=== PATIENT | female | born 1955 | race African-American/Black ===

== ENCOUNTER 2021-10-18 12:57 | Inpatient (IN) | payer MEDICARE, MEDICAID ==
[~2021-10-18] VITALS: Ht 167.6 cm; Wt 97.5 kg
[~2021-10-18 12:57] MED LIST: ALBU6.7H9 INH; BUPR-46 MT; CHOL400D7 PO; COR3 PO; EPOE40009 IJ; GABA-529 PO; HEPA100D37 SQ; INSU100C6 SQ; LEVO200T8 MT; LOSA25TA3 PO; MELA3TAB40 PO; NEPVIT PO; POLY119P2 MT; PROT40 MT; REV20 PO; RISP2TAB85 PO; SENN-257 PO; SEVE800T8 MT; SIME80TA15 PO; THIA50TA12 MT
[2021-10-18] MEDS ORDERED: LORAZEPAM 2MG/ML CPJ IM ONE (14:30)
[2021-10-18 15:30] LABS: BASOPHILS % 0.3 % (0.0-2.0); EOSINOPHILS % 8.3 % (0.0-5.0); HEMATOCRIT. 37.5 % (36.0-48.0); HEMOGLOBIN. 12.3 g/dL (12.0-16.0); LYMPHOCYTES % 15.9 % (20.0-50.0); MEAN CORPUSCULAR HEMOGLOBIN 28.8 pg (28.0-32.0); MEAN CORPUSCULAR VOLUME 87.9 fL (81.0-99.0); MEAN PLATELET VOLUME 9.3 fl (7.4-10.4); MONOCYTES % 11.5 % (2.0-8.0); PLATELET 141 x1000/uL (130-400); RED BLOOD CELL COUNT 4.27 mill/uL (4.2-5.4); RED CELL DISTRIBUTION WIDTH 21.8 % (11.6-14.6)
[2021-10-18 15:33] LABS: CHLORIDE 93 mEq/L (98-107)
[2021-10-18] MEDS ORDERED: SODIUM CHLORIDE 0.9% 1000ML BAG (SEPSIS BOLUS) IV ONE (15:45)
[2021-10-18] MEDS ORDERED: PIPERACILLIN/TAZ 3.375G PREMIX 50 ML IV ONE (15:45)
[2021-10-18] MEDS ORDERED: VANCOMYCIN 1G PREMIX 200 ML IV ONE (15:45)
[2021-10-18] MEDS ORDERED: SODIUM BICARBONATE 8.4% 1 MEQ/ML 50ML SYR IV ONE (16:15)
[2021-10-18 20:43] LABS: CLARITY URINE TURBID (CLEAR); COLOR URINE YELLOW (YELLOW); KETONES URINE NEGATIVE (NEGATIVE); LEUKOCYTE ESTERASE URINE 3+ (NEGATIVE); NITRITE URINE NEGATIVE (NEGATIVE); OCCULT BLOOD URINE 2+ (NEGATIVE); PH URINE >=9.0 (4.5-8.0); PROTEIN URINE 2+ (NEGATIVE); SPECIFIC GRAVITY URINE 1.008 (1.005-1.030); UROBILINOGEN URINE 0.2 E.U./dL (0.2-1.0)
[2021-10-18] MEDS ORDERED: ACETAMINOPHEN 325MG TABLET PO PRN (21:00)
[2021-10-18] MEDS ORDERED: CEFTRIAXONE 1 G PREMIX 50 ML IV SCH (21:00)
[2021-10-18] MEDS ORDERED: ONDANSETRON HCL 4MG/2ML INJ IV PRN (21:00)
[2021-10-18] MEDS ORDERED: DOCUSATE SODIUM 100MG CAPSULE PO PRN (21:00)
[2021-10-18] MEDS ORDERED: HYDROCODONE/ACETAMINOPHEN 5/325MG TABLET PO PRN (21:00)
[2021-10-18] MEDS ORDERED: MAGNESIUM/ALUMINUM HYDROXIDE/SIMETHICONE 30ML UDC PO PRN (21:00)
[2021-10-18] MEDS ORDERED: LORAZEPAM 2MG/ML CPJ IV PRN (21:00)
[2021-10-18] MEDS ORDERED: CLONIDINE 0.1MG TABLET PO PRN (21:00)
[2021-10-18] MEDS ORDERED: NALOXONE HCL 0.4MG/ML VIAL IV PRN (21:45)
[2021-10-18] MEDS: ENOXAPARIN 40MG/0.4ML SYR SUBCUT SCH (21:50)
[2021-10-19 08:06] LABS: HEMATOCRIT. 37.2 % (36.0-48.0); MEAN CORPUSCULAR HEMOGLOBIN 28.6 pg (28.0-32.0); MEAN CORPUSCULAR VOLUME 88.9 fL (81.0-99.0); MEAN PLATELET VOLUME 9.3 fl (7.4-10.4); PLATELET 119 x1000/uL (130-400); RED BLOOD CELL COUNT 4.19 mill/uL (4.2-5.4); RED CELL DISTRIBUTION WIDTH 21.9 % (11.6-14.6)
[2021-10-19 08:28] LABS: CHLORIDE 96 mEq/L (98-107)
[2021-10-19 08:45] VITALS: BP 158/83
[2021-10-19 08:52] LABS: HDL CHOLESTEROL 40 mg/dL (40-59)
[2021-10-19 08:55] LABS: LDL CHOLESTEROL 25 mg/dL (5-100); PHOSPHORUS 4.1 mg/dL (2.5-4.9)
[2021-10-19 10:00] VITALS: BP 158/83
[2021-10-19 12:00] VITALS: BP 149/73
[2021-10-19 13:11] LABS: BG BASE EXCESS 8.2 mmol/L (-2.0-2.0); BG CARBOXYHEMOGLOBIN 1.2 % (0.5-1.5); BG DEOXYHEMOGLOBIN 1.6 % (0.0-5.0); BG FRACTION INSPIRED OXYGEN 28; BG HCO3 ACT 34.1 mmol/L (22.0-26.0); BG METHEMOGLOBIN 0.3 % (0.0-1.5); BG OXYGEN SATURATION 98.4 % (92.0-98.5); BG OXYHEMOGLOBIN 96.9 % (94.0-97.0); BG PH 7.426 (7.350-7.450); BG PO2 115.5 mmHg (75.0-100.0); BG SAMPLE SITE RIGHT RADIAL; BG TOTAL HEMOGLOBIN 12.5 g/dL (12.0-18.0); BG VENT MODE NASAL CANNULA
[2021-10-19 14:05] LABS: PLATELET ESTIMATE DECREASED
[2021-10-19 16:00] VITALS: BP 152/78
[2021-10-19 17:11] LABS: HEPATITIS B SURFACE ANTIGEN NEGATIVE
[2021-10-19] MEDS: DIVALPROEX SODIUM 250MG DR TABLET PO SCH ×2 (17:46→21:18)
[2021-10-19 20:00] VITALS: BP 155/83
[2021-10-19] MEDS ORDERED: ALBUTEROL (0.083%) 2.5MG/3ML NEB HHN SCH (21:00)
[2021-10-19] MEDS ORDERED: ALBUTEROL 6.7GM HFA INHALER INH SCH (21:00)
[2021-10-19] MEDS: SIMETHICONE 80MG TABLET CHEW PO SCH (21:18)
[2021-10-19] MEDS: ENOXAPARIN 40MG/0.4ML SYR SUBCUT SCH (21:19)
[2021-10-19] MEDS: SILDENAFIL CITRATE 20MG TABLET PO SCH (21:19)
[2021-10-19] MEDS: QUETIAPINE FUMARATE 50MG TABLET PO SCH (21:19)
[2021-10-19] MEDS: CEFTRIAXONE 1,000 MG in DEXTROSE 5% WATER 50 ML IV SCH (21:20)
[2021-10-19] MEDS: CARVEDILOL 3.125 MG TABLET PO SCH (21:20)
[2021-10-20] VITALS: BP 115/50
[2021-10-20 04:00] VITALS: BP 106/67
[2021-10-20] MEDS: SILDENAFIL CITRATE 20MG TABLET PO SCH ×3 (06:06→20:35)
[2021-10-20 06:53] LABS: BASOPHILS % 0.8 % (0.0-2.0); LYMPHOCYTES % 17.8 % (20.0-50.0); MEAN CORPUSCULAR HEMOGLOBIN 28.4 pg (28.0-32.0); MEAN CORPUSCULAR VOLUME 87.7 fL (81.0-99.0); MEAN PLATELET VOLUME 9.8 fl (7.4-10.4); MONOCYTES % 12.4 % (2.0-8.0); PLATELET 108 x1000/uL (130-400); RED BLOOD CELL COUNT 4.56 mill/uL (4.2-5.4); RED CELL DISTRIBUTION WIDTH 21.9 % (11.6-14.6)
[2021-10-20 08:00] VITALS: BP 113/86
[2021-10-20] MEDS: GABAPENTIN 100MG CAPSULE PO SCH ×2 (09:00→17:42)
[2021-10-20] MEDS: SEVELAMER CARBONATE 800 MG TABLET PO SCH ×3 (09:00→17:38)
[2021-10-20] MEDS: DIVALPROEX SODIUM 250MG DR TABLET PO SCH ×2 (09:00→20:34)
[2021-10-20] MEDS: PANTOPRAZOLE 40MG DR TABLET PO SCH (09:00)
[2021-10-20] MEDS: CARVEDILOL 3.125 MG TABLET PO SCH ×2 (09:00→21:00)
[2021-10-20] MEDS: LOSARTAN POTASSIUM 25 MG TABLET PO SCH (09:00)
[2021-10-20] MEDS: SIMETHICONE 80MG TABLET CHEW PO SCH ×4 (09:00→20:34)
[2021-10-20] MEDS: FOLIC ACID/VITAMIN B COMP W-C TABLET PO SCH (09:00)
[2021-10-20 12:00] VITALS: BP 103/51
[2021-10-20] MEDS ORDERED: DIVA250T4 PO (13:37)
[2021-10-20] MEDS ORDERED: QUET50TA PO (13:37)
[2021-10-20 16:00] VITALS: BP 123/56
[2021-10-20] MEDS: BUPROPION HCL 150MG TABLET XL 24HR PO SCH (17:37)
[2021-10-20] MEDS: CEFTRIAXONE 1,000 MG in DEXTROSE 5% WATER 50 ML IV SCH (17:37)
[2021-10-20] MEDS: SENNOSIDES 8.6MG TABLET PO SCH (17:37)
[2021-10-20] MEDS: DIPHENHYDRAMINE 50MG/ML VIAL IV PRN (17:49)
[2021-10-20 20:00] VITALS: BP 109/59
[2021-10-20] MEDS: QUETIAPINE FUMARATE 50MG TABLET PO SCH (20:34)
[2021-10-20] MEDS: ENOXAPARIN 40MG/0.4ML SYR SUBCUT SCH (20:35)
[2021-10-21] VITALS: BP 132/71
[2021-10-21 04:00] VITALS: BP 116/59
[2021-10-21] MEDS: SILDENAFIL CITRATE 20MG TABLET PO SCH ×3 (05:42→21:36)
[2021-10-21 08:00] VITALS: BP 119/56
[2021-10-21] MEDS: CARVEDILOL 3.125 MG TABLET PO SCH ×2 (09:29→21:00)
[2021-10-21] MEDS: LOSARTAN POTASSIUM 25 MG TABLET PO SCH (09:29)
[2021-10-21] MEDS: BUPROPION HCL 150MG TABLET XL 24HR PO SCH (09:29)
[2021-10-21] MEDS: SIMETHICONE 80MG TABLET CHEW PO SCH ×4 (09:29→21:33)
[2021-10-21] MEDS: SENNOSIDES 8.6MG TABLET PO SCH (09:29)
[2021-10-21] MEDS: PANTOPRAZOLE 40MG DR TABLET PO SCH (09:29)
[2021-10-21] MEDS: SEVELAMER CARBONATE 800 MG TABLET PO SCH ×3 (09:29→17:53)
[2021-10-21] MEDS: GABAPENTIN 100MG CAPSULE PO SCH (09:29)
[2021-10-21] MEDS: FOLIC ACID/VITAMIN B COMP W-C TABLET PO SCH (09:30)
[2021-10-21] MEDS: DIVALPROEX SODIUM 250MG DR TABLET PO SCH ×2 (09:30→21:33)
[2021-10-21 09:56] LABS: MEAN CORPUSCULAR HEMOGLOBIN 28.6 pg (28.0-32.0); MEAN CORPUSCULAR VOLUME 90.1 fL (81.0-99.0); MEAN PLATELET VOLUME 9.7 fl (7.4-10.4); PLATELET 111 x1000/uL (130-400); RED BLOOD CELL COUNT 3.81 mill/uL (4.2-5.4); RED CELL DISTRIBUTION WIDTH 21.9 % (11.6-14.6)
[2021-10-21 10:06] LABS: HEMATOCRIT. 34.4 % (36.0-48.0); HEMOGLOBIN. 10.9 g/dL (12.0-16.0)
[2021-10-21 11:28] LABS: PLATELET ESTIMATE DECREASED
[2021-10-21 12:00] VITALS: BP 122/61
[2021-10-21] MEDS: CEFTRIAXONE 1,000 MG in DEXTROSE 5% WATER 50 ML IV SCH (13:27)
[2021-10-21 16:00] VITALS: BP 113/49
[2021-10-21] MEDS: DIPHENHYDRAMINE 50MG/ML VIAL IV PRN (18:18)
[2021-10-21 20:00] VITALS: BP 103/52
[2021-10-21] MEDS: QUETIAPINE FUMARATE 50MG TABLET PO SCH (21:33)
[2021-10-21] MEDS: ENOXAPARIN 40MG/0.4ML SYR SUBCUT SCH (21:36)
[2021-10-22] VITALS (7 sets, daily range): BP systolic 107–153; BP diastolic 55–68
[2021-10-22] MEDS: SILDENAFIL CITRATE 20MG TABLET PO SCH ×3 (05:18→20:45)
[2021-10-22] MEDS: SEVELAMER CARBONATE 800 MG TABLET PO SCH ×3 (09:31→18:14)
[2021-10-22] MEDS: LOSARTAN POTASSIUM 25 MG TABLET PO SCH (09:32)
[2021-10-22] MEDS: SIMETHICONE 80MG TABLET CHEW PO SCH ×4 (09:32→20:44)
[2021-10-22] MEDS: GABAPENTIN 100MG CAPSULE PO SCH (09:33)
[2021-10-22] MEDS: BUPROPION HCL 150MG TABLET XL 24HR PO SCH (09:33)
[2021-10-22] MEDS: FOLIC ACID/VITAMIN B COMP W-C TABLET PO SCH (09:33)
[2021-10-22] MEDS: SENNOSIDES 8.6MG TABLET PO SCH (09:34)
[2021-10-22] MEDS: DIVALPROEX SODIUM 250MG DR TABLET PO SCH ×2 (09:35→20:44)
[2021-10-22] MEDS: PANTOPRAZOLE 40MG DR TABLET PO SCH (09:37)
[2021-10-22] MEDS: CARVEDILOL 3.125 MG TABLET PO SCH ×2 (09:37→20:45)
[2021-10-22] MEDS: CEFTRIAXONE 1,000 MG in DEXTROSE 5% WATER 50 ML IV SCH (14:33)
[2021-10-22] MEDS: ENOXAPARIN 40MG/0.4ML SYR SUBCUT SCH (20:44)
[2021-10-22] MEDS: QUETIAPINE FUMARATE 50MG TABLET PO SCH (20:44)
[2021-10-23] VITALS: BP 129/66
[2021-10-23 04:00] VITALS: BP 134/53
[2021-10-23] MEDS: SILDENAFIL CITRATE 20MG TABLET PO SCH ×3 (05:37→20:52)
[2021-10-23 08:00] VITALS: BP 118/55
[2021-10-23] MEDS: CARVEDILOL 3.125 MG TABLET PO SCH ×2 (09:00→20:53)
[2021-10-23] MEDS: LOSARTAN POTASSIUM 25 MG TABLET PO SCH (09:00)
[2021-10-23] MEDS: PANTOPRAZOLE 40MG DR TABLET PO SCH (11:51)
[2021-10-23] MEDS: SEVELAMER CARBONATE 800 MG TABLET PO SCH ×3 (11:51→18:29)
[2021-10-23] MEDS: SENNOSIDES 8.6MG TABLET PO SCH (11:51)
[2021-10-23] MEDS: BUPROPION HCL 150MG TABLET XL 24HR PO SCH (11:52)
[2021-10-23] MEDS: SIMETHICONE 80MG TABLET CHEW PO SCH ×4 (11:52→20:53)
[2021-10-23] MEDS: GABAPENTIN 100MG CAPSULE PO SCH (11:52)
[2021-10-23] MEDS: DIVALPROEX SODIUM 250MG DR TABLET PO SCH ×2 (11:52→20:55)
[2021-10-23] MEDS: FOLIC ACID/VITAMIN B COMP W-C TABLET PO SCH (11:52)
[2021-10-23 12:00] VITALS: BP 120/58
[2021-10-23] MEDS: DIPHENHYDRAMINE 50MG/ML VIAL IV PRN (12:04)
[2021-10-23] MEDS: CEFTRIAXONE 1,000 MG in DEXTROSE 5% WATER 50 ML IV SCH (13:54)
[2021-10-23 16:00] VITALS: BP 125/60
[2021-10-23 20:00] VITALS: BP 141/61
[2021-10-23] MEDS: QUETIAPINE FUMARATE 50MG TABLET PO SCH (20:53)
[2021-10-23] MEDS: ENOXAPARIN 40MG/0.4ML SYR SUBCUT SCH (21:00)
[2021-10-23] MEDS ORDERED: DEXTROSE 50% WATER 50ML SYRINGE IV PRN (23:00)
[2021-10-24] VITALS: BP 107/51
[2021-10-24] MEDS: DIPHENHYDRAMINE 50MG/ML VIAL IV PRN (00:10)
[2021-10-24 06:00] VITALS: BP 124/59
[2021-10-24] MEDS: SILDENAFIL CITRATE 20MG TABLET PO SCH ×2 (06:10→14:14)
[2021-10-24 08:00] VITALS: BP 118/57
[2021-10-24 08:19] LABS: BASOPHILS % 0.6 % (0.0-2.0); EOSINOPHILS % 11.6 % (0.0-5.0); LYMPHOCYTES % 23.9 % (20.0-50.0); MEAN CORPUSCULAR HEMOGLOBIN 28.7 pg (28.0-32.0); MEAN CORPUSCULAR VOLUME 90.4 fL (81.0-99.0); MEAN PLATELET VOLUME 9.8 fl (7.4-10.4); MONOCYTES % 12.9 % (2.0-8.0); PLATELET 119 x1000/uL (130-400); RED BLOOD CELL COUNT 4.41 mill/uL (4.2-5.4); RED CELL DISTRIBUTION WIDTH 22.4 % (11.6-14.6)
[2021-10-24 08:37] LABS: HEMATOCRIT. 39.9 % (36.0-48.0); HEMOGLOBIN. 12.7 g/dL (12.0-16.0)
[2021-10-24] MEDS: SIMETHICONE 80MG TABLET CHEW PO SCH ×2 (09:10→14:14)
[2021-10-24] MEDS: DIVALPROEX SODIUM 250MG DR TABLET PO SCH (09:10)
[2021-10-24] MEDS: SENNOSIDES 8.6MG TABLET PO SCH (09:11)
[2021-10-24] MEDS: CARVEDILOL 3.125 MG TABLET PO SCH (09:11)
[2021-10-24] MEDS: BUPROPION HCL 150MG TABLET XL 24HR PO SCH (09:11)
[2021-10-24] MEDS: LOSARTAN POTASSIUM 25 MG TABLET PO SCH (09:11)
[2021-10-24] MEDS: PANTOPRAZOLE 40MG DR TABLET PO SCH (09:11)
[2021-10-24] MEDS: SEVELAMER CARBONATE 800 MG TABLET PO SCH ×2 (09:11→14:15)
[2021-10-24] MEDS: GABAPENTIN 100MG CAPSULE PO SCH (09:11)
[2021-10-24] MEDS: FOLIC ACID/VITAMIN B COMP W-C TABLET PO SCH (09:11)
[2021-10-24 12:00] VITALS: BP 132/73
[2021-10-24 15:39] VITALS: BP 132/73
== END 2021-10-24 16:00 | disposition home or self-care (01) | DRG 189 ==
LOC: ER 13:04 → MICUSO 16:11 → 8WST 10-19 09:03
PROVIDERS: ADMIT Internal Medicine; ATTEND Internal Medicine
PROC: 5A1D70Z Performance of Urinary Filtration, Intermittent, Less than 6 Hours Per Day (ICD-10-PCS; 2021-10-19)
PROC: 5A1D70Z Performance of Urinary Filtration, Intermittent, Less than 6 Hours Per Day (ICD-10-PCS; 2021-10-22)
PROC: 5A1D70Z Performance of Urinary Filtration, Intermittent, Less than 6 Hours Per Day (ICD-10-PCS; principal; 2021-10-24)
DX: J96.01 Acute respiratory failure with hypoxia (principal); N18.6 End stage renal disease; I12.0 Hypertensive chronic kidney disease with stage 5 chronic kidney disease or end stage renal disease; E44.0 Moderate protein-calorie malnutrition; G93.40 Encephalopathy, unspecified; J81.1 Chronic pulmonary edema; N39.0 Urinary tract infection, site not specified; F31.9 Bipolar disorder, unspecified; F20.9 Schizophrenia, unspecified; D64.9 Anemia, unspecified; E03.9 Hypothyroidism, unspecified; Z20.822 Contact with and (suspected) exposure to COVID-19; E11.22 Type 2 diabetes mellitus with diabetic chronic kidney disease; E66.9 Obesity, unspecified; E87.5 Hyperkalemia; R62.7 Adult failure to thrive; Z85.118 Personal history of other malignant neoplasm of bronchus and lung; Z86.73 Personal history of transient ischemic attack (TIA), and cerebral infarction without residual deficits; Z91.14 Patient's other noncompliance with medication regimen; Z99.2 Dependence on renal dialysis; Z68.34 Body mass index [BMI] 34.0-34.9, adult; Z82.49 Family history of ischemic heart disease and other diseases of the circulatory system; Z85.3 Personal history of malignant neoplasm of breast; Z83.3 Family history of diabetes mellitus
CPT/HCPCS: 36415; 36600; 71045; 76770; 80048; 80053; 80061; 80076; 81003; 82140; 82375; 82805; 82962; 83605; 83735; 83880; 84100; 84145; 84484; 85025; 86705; 86709; 86803; 87340; 87426; 93005; 93970; 94640; 99285; J0696; J1200; J1650; J2060; J2405; J2543; J3370; J3490; J7030; J7040; J7060

== ENCOUNTER 2021-12-15 22:35 | Emergency (ER) | payer MEDICARE, MEDICAID ==
[~2021-12-15] VITALS: Ht 172.7 cm; Wt 68.0 kg
[~2021-12-15 22:35] MED LIST changes: +DIVA250T4 PO; -HEPA100D37 SQ; -MELA3TAB40 PO; +QUET50TA PO; -RISP2TAB85 PO
[2021-12-15 22:52] VITALS: BP 146/69
[2021-12-16] MEDS ORDERED: DIPH25CA83 MT (00:45)
[2021-12-16] MEDS ORDERED: DIPHENHYDRAMINE 25MG CAPSULE PO ONE (00:45)
[2021-12-16] MEDS ORDERED: DIPHENHYDRAMINE 25MG CAPSULE PO NR (02:45)
== END 2021-12-16 09:48 | disposition home or self-care (01) ==
LOC: ER 22:35
DX: L89.159 Pressure ulcer of sacral region, unspecified stage (principal); L29.9 Pruritus, unspecified; I12.0 Hypertensive chronic kidney disease with stage 5 chronic kidney disease or end stage renal disease; N18.6 End stage renal disease; Z99.2 Dependence on renal dialysis
CPT/HCPCS: 99283; Q0163

== ENCOUNTER 2022-03-20 14:24 | Inpatient (IN) | payer MEDICARE, MEDICAID ==
[~2022-03-20] VITALS: Ht 167.6 cm; Wt 82.1 kg
[~2022-03-20 14:24] MED LIST changes: -BUPR-46 MT; +BUPR-46 PO; +DIPH25CA83 MT; -LEVO200T8 MT; +LEVO200T8 PO; -POLY119P2 MT; +POLY119P2 PO; -PROT40 MT; +PROT40 PO; -THIA50TA12 MT; +THIA50TA12 PO
[2022-03-20 15:42] LABS: HEMATOCRIT. 32.1 % (36.0-48.0); HEMOGLOBIN. 10.3 g/dL (12.0-16.0); MEAN CORPUSCULAR HEMOGLOBIN 32.1 pg (28.0-32.0); MEAN PLATELET VOLUME 11.1 fl (7.4-10.4); PLATELET 118 x1000/uL (130-400); RED CELL DISTRIBUTION WIDTH 18.3 % (11.6-14.6)
[2022-03-20 16:14] LABS: INR 1.3; PROTHROMBIN TIME 13.5 sec (9.6-11.0)
[2022-03-20 18:25] LABS: PLATELET ESTIMATE DECREASED
[2022-03-20] MEDS ORDERED: ACETAMINOPHEN 325MG TABLET PO PRN (19:30)
[2022-03-20] MEDS ORDERED: CLONIDINE 0.1MG TABLET PO PRN (19:30)
[2022-03-20] MEDS ORDERED: IPRATROPIUM/ALBUTEROL 0.5-3(2.5)MG/3ML NEB HHN PRN (19:30)
[2022-03-20] MEDS ORDERED: ONDANSETRON HCL 4MG/2ML INJ IV PRN (19:30)
[2022-03-20] MEDS ORDERED: RISP2TAB85 PO (23:38)
[2022-03-20 23:51] VITALS: BP 132/78
[2022-03-21] VITALS: BP 132/78
[2022-03-21] MEDS: DIPHENHYDRAMINE 50MG/ML VIAL IV PRN ×3 (01:29→21:53)
[2022-03-21 04:00] VITALS: BP 103/65
[2022-03-21 06:31] LABS: BASOPHILS % 0.8 % (0.0-2.0); EOSINOPHILS % 0.9 % (0.0-5.0); HEMATOCRIT. 29.5 % (36.0-48.0); HEMOGLOBIN. 9.6 g/dL (12.0-16.0); LYMPHOCYTES % 7.4 % (20.0-50.0); MEAN CORPUSCULAR HEMOGLOBIN 32.3 pg (28.0-32.0); MEAN CORPUSCULAR VOLUME 99.6 fL (81.0-99.0); MEAN PLATELET VOLUME 11.4 fl (7.4-10.4); MONOCYTES % 11.2 % (2.0-8.0); NEUTROPHILS % 79.7 % (40.0-76.0); PLATELET 130 x1000/uL (130-400); RED BLOOD CELL COUNT 2.96 mill/uL (4.2-5.4); RED CELL DISTRIBUTION WIDTH 18.2 % (11.6-14.6)
[2022-03-21 06:34] LABS: CHLORIDE 92 mEq/L (98-107)
[2022-03-21 08:00] VITALS: BP_SYST 112; BP_SYST 230; BP_DIAS 109; BP_DIAS 73
[2022-03-21 12:00] VITALS: BP 101/58
[2022-03-21 14:38] LABS: PHOSPHORUS 4.6 mg/dL (2.5-4.9)
[2022-03-21 16:00] VITALS: BP 103/67
[2022-03-21 20:00] VITALS: BP 134/84
[2022-03-22] VITALS: BP 142/78
[2022-03-22] MEDS: DIPHENHYDRAMINE 50MG/ML VIAL IV PRN ×2 (02:05→17:00)
[2022-03-22 04:00] VITALS: BP 145/83
[2022-03-22 06:39] LABS: BASOPHILS % 0.4 % (0.0-2.0); EOSINOPHILS % 1.5 % (0.0-5.0); HEMATOCRIT. 33.1 % (36.0-48.0); HEMOGLOBIN. 10.6 g/dL (12.0-16.0); LYMPHOCYTES % 11.7 % (20.0-50.0); MEAN CORPUSCULAR VOLUME 99.8 fL (81.0-99.0); MEAN PLATELET VOLUME 10.6 fl (7.4-10.4); MONOCYTES % 10.7 % (2.0-8.0); NEUTROPHILS % 75.7 % (40.0-76.0); PLATELET 126 x1000/uL (130-400); RED BLOOD CELL COUNT 3.31 mill/uL (4.2-5.4); RED CELL DISTRIBUTION WIDTH 17.9 % (11.6-14.6)
[2022-03-22 08:00] VITALS: BP 141/83
[2022-03-22 12:00] VITALS: BP 138/79
[2022-03-22] MEDS: BUPROPION HCL 150MG TABLET XL 24HR PO SCH (12:22)
[2022-03-22 13:32] LABS: HEPATITIS B SURFACE ANTIGEN NEGATIVE
[2022-03-22 16:00] VITALS: BP 135/69
[2022-03-22 20:00] VITALS: BP 114/85
[2022-03-22] MEDS: RISPERIDONE 1MG TABLET PO SCH (20:26)
[2022-03-22] MEDS: QUETIAPINE FUMARATE 50MG TABLET PO SCH (20:26)
[2022-03-22] MEDS: DIVALPROEX SODIUM 250MG DR TABLET PO SCH (20:26)
[2022-03-23] VITALS: BP 121/81
[2022-03-23 04:00] VITALS: BP 130/76
[2022-03-23 08:00] VITALS: BP 133/81
[2022-03-23] MEDS: DIVALPROEX SODIUM 250MG DR TABLET PO SCH ×2 (09:43→20:10)
[2022-03-23] MEDS: BUPROPION HCL 150MG TABLET XL 24HR PO SCH (09:48)
[2022-03-23 12:00] VITALS: BP 136/79
[2022-03-23 16:00] VITALS: BP 140/76
[2022-03-23] MEDS: DIPHENHYDRAMINE 50MG/ML VIAL IV PRN (18:06)
[2022-03-23 20:00] VITALS: BP 137/79
[2022-03-23] MEDS: RISPERIDONE 1MG TABLET PO SCH (20:10)
[2022-03-23] MEDS: MIRTAZAPINE 15MG TABLET PO SCH (20:10)
[2022-03-23] MEDS: QUETIAPINE FUMARATE 50MG TABLET PO SCH (20:10)
[2022-03-24 00:36] VITALS: BP 139/86
[2022-03-24 04:00] VITALS: BP 129/82
[2022-03-24 05:49] LABS: BASOPHILS % 1.4 % (0.0-2.0); EOSINOPHILS % 3.7 % (0.0-5.0); HEMATOCRIT. 31.1 % (36.0-48.0); HEMOGLOBIN. 10.3 g/dL (12.0-16.0); LYMPHOCYTES % 9.7 % (20.0-50.0); MEAN CORPUSCULAR HEMOGLOBIN 32.6 pg (28.0-32.0); MEAN CORPUSCULAR VOLUME 98.4 fL (81.0-99.0); MEAN PLATELET VOLUME 11.2 fl (7.4-10.4); MONOCYTES % 8.1 % (2.0-8.0); NEUTROPHILS % 77.1 % (40.0-76.0); PLATELET 110 x1000/uL (130-400); RED BLOOD CELL COUNT 3.16 mill/uL (4.2-5.4); RED CELL DISTRIBUTION WIDTH 17.7 % (11.6-14.6)
[2022-03-24 08:00] VITALS: BP 133/77
[2022-03-24 12:00] VITALS: BP 139/82
[2022-03-24] MEDS: DIVALPROEX SODIUM 250MG DR TABLET PO SCH ×2 (14:45→20:32)
[2022-03-24] MEDS: BUPROPION HCL 150MG TABLET XL 24HR PO SCH (14:45)
[2022-03-24 16:00] VITALS: BP 147/78
[2022-03-24] MEDS: MIRTAZAPINE 15MG TABLET PO SCH (20:32)
[2022-03-24] MEDS: QUETIAPINE FUMARATE 50MG TABLET PO SCH (20:32)
[2022-03-24] MEDS: RISPERIDONE 1MG TABLET PO SCH (20:32)
[2022-03-24 20:56] VITALS: BP 155/94
[2022-03-25 00:53] VITALS: BP 126/77
[2022-03-25 04:00] VITALS: BP 143/89
[2022-03-25 08:00] VITALS: BP 129/105
[2022-03-25 08:32] LABS: BASOPHILS % 0.5 % (0.0-2.0); HEMATOCRIT. 28.6 % (36.0-48.0); HEMOGLOBIN. 9.3 g/dL (12.0-16.0); LYMPHOCYTES % 9.6 % (20.0-50.0); MEAN CORPUSCULAR HEMOGLOBIN 32.3 pg (28.0-32.0); MEAN CORPUSCULAR VOLUME 99.2 fL (81.0-99.0); NEUTROPHILS % 77.9 % (40.0-76.0); RED BLOOD CELL COUNT 2.88 mill/uL (4.2-5.4); RED CELL DISTRIBUTION WIDTH 17.6 % (11.6-14.6)
[2022-03-25] MEDS: BUPROPION HCL 150MG TABLET XL 24HR PO SCH (09:00)
[2022-03-25] MEDS: DIVALPROEX SODIUM 250MG DR TABLET PO SCH ×2 (09:00→21:06)
[2022-03-25 09:49] LABS: MEAN PLATELET VOLUME 11.1 fl (7.4-10.4); PLATELET 107 x1000/uL (130-400)
[2022-03-25 12:00] VITALS: BP 125/95
[2022-03-25 16:00] VITALS: BP 158/79
[2022-03-25 20:00] VITALS: BP 168/73
[2022-03-25] MEDS: QUETIAPINE FUMARATE 50MG TABLET PO SCH (21:05)
[2022-03-25] MEDS: RISPERIDONE 1MG TABLET PO SCH (21:05)
[2022-03-25] MEDS: MIRTAZAPINE 15MG TABLET PO SCH (21:05)
[2022-03-26] VITALS: BP 130/91
[2022-03-26 04:00] VITALS: BP 131/83
[2022-03-26] MEDS: BUPROPION HCL 150MG TABLET XL 24HR PO SCH (09:00)
[2022-03-26] MEDS: DIVALPROEX SODIUM 250MG DR TABLET PO SCH ×2 (09:00→21:22)
[2022-03-26 10:57] LABS: BASOPHILS % 0.4 % (0.0-2.0); EOSINOPHILS % 1.6 % (0.0-5.0); HEMATOCRIT. 35.6 % (36.0-48.0); LYMPHOCYTES % 12.5 % (20.0-50.0); MEAN CORPUSCULAR HEMOGLOBIN 32.2 pg (28.0-32.0); MEAN CORPUSCULAR VOLUME 98.1 fL (81.0-99.0); MONOCYTES % 10.9 % (2.0-8.0); NEUTROPHILS % 74.6 % (40.0-76.0); PLATELET 138 x1000/uL (130-400); RED BLOOD CELL COUNT 3.63 mill/uL (4.2-5.4); RED CELL DISTRIBUTION WIDTH 17.2 % (11.6-14.6)
[2022-03-26 11:20] LABS: HEMOGLOBIN. 11.7 g/dL (12.0-16.0)
[2022-03-26 12:00] VITALS: BP 110/65
[2022-03-26 16:00] VITALS: BP 133/67
[2022-03-26 20:00] VITALS: BP 134/71
[2022-03-26] MEDS: QUETIAPINE FUMARATE 50MG TABLET PO SCH (21:21)
[2022-03-26] MEDS: MIRTAZAPINE 15MG TABLET PO SCH (21:22)
[2022-03-26] MEDS: RISPERIDONE 1MG TABLET PO SCH (21:22)
[2022-03-26] MEDS: DIPHENHYDRAMINE 50MG/ML VIAL IV PRN (21:48)
[2022-03-27] VITALS: BP 112/61
[2022-03-27 04:00] VITALS: BP 97/59
[2022-03-27 08:00] VITALS: BP_SYST 115; BP_SYST 121; BP_DIAS 68; BP_DIAS 72
[2022-03-27] MEDS: BUPROPION HCL 150MG TABLET XL 24HR PO SCH (09:51)
[2022-03-27] MEDS: DIVALPROEX SODIUM 250MG DR TABLET PO SCH ×2 (09:52→21:53)
[2022-03-27 12:00] VITALS: BP 121/68
[2022-03-27] MEDS ORDERED: POTASSIUM CHLORIDE 20MEQ TABLET SR PO NR (12:00)
[2022-03-27 16:00] VITALS: BP 132/69
[2022-03-27 20:00] VITALS: BP 120/58
[2022-03-27] MEDS: MIRTAZAPINE 15MG TABLET PO SCH (21:54)
[2022-03-27] MEDS: RISPERIDONE 1MG TABLET PO SCH (21:54)
[2022-03-27] MEDS: QUETIAPINE FUMARATE 50MG TABLET PO SCH (21:54)
[2022-03-28] VITALS: BP 141/79
[2022-03-28 04:00] VITALS: BP 117/75
[2022-03-28 08:00] VITALS: BP 116/57
[2022-03-28] MEDS: BUPROPION HCL 150MG TABLET XL 24HR PO SCH (09:28)
[2022-03-28] MEDS: DIVALPROEX SODIUM 250MG DR TABLET PO SCH ×2 (09:28→21:57)
[2022-03-28 09:53] LABS: BASOPHILS % 0.4 % (0.0-2.0); EOSINOPHILS % 2.5 % (0.0-5.0); HEMATOCRIT. 27.6 % (36.0-48.0); LYMPHOCYTES % 11.4 % (20.0-50.0); MEAN CORPUSCULAR HEMOGLOBIN 32.4 pg (28.0-32.0); MEAN CORPUSCULAR VOLUME 99.1 fL (81.0-99.0); MEAN PLATELET VOLUME 11.1 fl (7.4-10.4); NEUTROPHILS % 71.7 % (40.0-76.0); PLATELET 74 x1000/uL (130-400); RED BLOOD CELL COUNT 2.79 mill/uL (4.2-5.4); RED CELL DISTRIBUTION WIDTH 16.8 % (11.6-14.6)
[2022-03-28 12:00] VITALS: BP 119/69
[2022-03-28 16:00] VITALS: BP 155/65
[2022-03-28 20:49] VITALS: BP 123/78
[2022-03-28] MEDS: QUETIAPINE FUMARATE 50MG TABLET PO SCH (21:58)
[2022-03-28] MEDS: MIRTAZAPINE 15MG TABLET PO SCH (21:58)
[2022-03-28] MEDS: RISPERIDONE 1MG TABLET PO SCH (21:58)
[2022-03-29 00:47] VITALS: BP 103/62
[2022-03-29 04:00] VITALS: BP 123/91
[2022-03-29] MEDS: DIPHENHYDRAMINE 50MG/ML VIAL IV PRN (06:21)
[2022-03-29 08:12] LABS: BASOPHILS % 0.6 % (0.0-2.0); EOSINOPHILS % 3.2 % (0.0-5.0); HEMATOCRIT. 29.6 % (36.0-48.0); HEMOGLOBIN. 9.5 g/dL (12.0-16.0); LYMPHOCYTES % 11.7 % (20.0-50.0); MEAN CORPUSCULAR HEMOGLOBIN 32.1 pg (28.0-32.0); MEAN CORPUSCULAR VOLUME 100.1 fL (81.0-99.0); MEAN PLATELET VOLUME 10.7 fl (7.4-10.4); MONOCYTES % 13.6 % (2.0-8.0); NEUTROPHILS % 70.9 % (40.0-76.0); PLATELET 80 x1000/uL (130-400); RED BLOOD CELL COUNT 2.96 mill/uL (4.2-5.4); RED CELL DISTRIBUTION WIDTH 17.2 % (11.6-14.6)
[2022-03-29] MEDS: DIVALPROEX SODIUM 250MG DR TABLET PO SCH ×2 (09:03→22:07)
[2022-03-29] MEDS: BUPROPION HCL 150MG TABLET XL 24HR PO SCH (09:03)
[2022-03-29 12:00] VITALS: BP 122/64
[2022-03-29 16:00] VITALS: BP 128/56
[2022-03-29 20:00] VITALS: BP 130/74
[2022-03-29] MEDS: MIRTAZAPINE 15MG TABLET PO SCH (22:07)
[2022-03-29] MEDS: QUETIAPINE FUMARATE 50MG TABLET PO SCH (22:08)
[2022-03-29] MEDS: RISPERIDONE 1MG TABLET PO SCH (22:08)
[2022-03-30] VITALS: BP 117/81
[2022-03-30 04:00] VITALS: BP 126/101
[2022-03-30] MEDS: BUPROPION HCL 150MG TABLET XL 24HR PO SCH (09:30)
[2022-03-30] MEDS: DIVALPROEX SODIUM 250MG DR TABLET PO SCH ×2 (09:30→21:19)
[2022-03-30 12:00] VITALS: BP 132/12
[2022-03-30 16:00] VITALS: BP 109/63
[2022-03-30 20:00] VITALS: BP 132/108
[2022-03-30] MEDS: QUETIAPINE FUMARATE 50MG TABLET PO SCH (21:19)
[2022-03-30] MEDS: RISPERIDONE 1MG TABLET PO SCH (21:19)
[2022-03-30] MEDS: MIRTAZAPINE 15MG TABLET PO SCH (21:20)
[2022-03-31] VITALS: BP 116/69
[2022-03-31 04:00] VITALS: BP 141/85
[2022-03-31] MEDS: BUPROPION HCL 150MG TABLET XL 24HR PO SCH (09:10)
[2022-03-31] MEDS: DIVALPROEX SODIUM 250MG DR TABLET PO SCH ×2 (09:10→20:58)
[2022-03-31 12:00] VITALS: BP 133/80
[2022-03-31 16:00] VITALS: BP 153/85
[2022-03-31 20:00] VITALS: BP 130/83
[2022-03-31] MEDS: MIRTAZAPINE 15MG TABLET PO SCH (20:58)
[2022-03-31] MEDS: RISPERIDONE 1MG TABLET PO SCH (20:58)
[2022-03-31] MEDS: QUETIAPINE FUMARATE 50MG TABLET PO SCH (20:58)
[2022-04-01] VITALS: BP 155/76
[2022-04-01 04:00] VITALS: BP 150/88
[2022-04-01 08:00] VITALS: BP 150/88
[2022-04-01] MEDS: BUPROPION HCL 150MG TABLET XL 24HR PO SCH (09:33)
[2022-04-01] MEDS: DIVALPROEX SODIUM 250MG DR TABLET PO SCH ×2 (09:33→20:58)
[2022-04-01 12:00] VITALS: BP 136/80
[2022-04-01 16:00] VITALS: BP 140/84
[2022-04-01 20:00] VITALS: BP 117/82
[2022-04-01] MEDS: MIRTAZAPINE 15MG TABLET PO SCH (20:58)
[2022-04-01] MEDS: RISPERIDONE 1MG TABLET PO SCH (20:58)
[2022-04-01] MEDS: QUETIAPINE FUMARATE 50MG TABLET PO SCH (20:59)
[2022-04-02] VITALS (25 sets, daily range): BP systolic 79–139; BP diastolic 45–95
[2022-04-02] MEDS ORDERED: CALCIUM CHLORIDE 1GM/10ML SYR IV ONE (08:17)
[2022-04-02] MEDS ORDERED: DEXTROSE 50% WATER 50ML SYRINGE IV ONE (08:17)
[2022-04-02] MEDS ORDERED: EPINEPHRINE 0.1MG/ML (1:10,000) 10ML SYR ONE (08:17)
[2022-04-02] MEDS ORDERED: SODIUM BICARBONATE 8.4% 1 MEQ/ML 50ML SYR IV ONE (08:17)
[2022-04-02] MEDS: BUPROPION HCL 150MG TABLET XL 24HR PO SCH (08:53)
[2022-04-02] MEDS: DIVALPROEX SODIUM 250MG DR TABLET PO SCH ×2 (08:53→21:12)
[2022-04-02 10:04] LABS: HEMATOCRIT. 29.2 % (36.0-48.0); HEMOGLOBIN. 9.5 g/dL (12.0-16.0); MEAN CORPUSCULAR HEMOGLOBIN 31.6 pg (28.0-32.0); MEAN CORPUSCULAR VOLUME 97.2 fL (81.0-99.0); MEAN PLATELET VOLUME 11.7 fl (7.4-10.4); PLATELET 107 x1000/uL (130-400); RED CELL DISTRIBUTION WIDTH 17.5 % (11.6-14.6)
[2022-04-02] MEDS ORDERED: PAMIDRONATE DISODIUM 60 MG in SODIUM CHLORIDE 0.9% 500 ML IV NR (14:00)
[2022-04-02 14:03] LABS: HEPATITIS B SURFACE ANTIGEN NEGATIVE
[2022-04-02] MEDS ORDERED: ASPIRIN 300MG SUPP PR SCH (16:00)
[2022-04-02 17:26] LABS: INR 1.1; PARTIAL THROMBOPLASTIN TIME 29.7 sec (23.4-31.0); PROTHROMBIN TIME 11.9 sec (9.6-11.0)
[2022-04-02] MEDS ORDERED: EPINEPHRINE 10 MG in SODIUM CHLORIDE 0.9% 240 ML IV PRN (18:50)
[2022-04-02] MEDS ORDERED: VASOPRESSIN 20 UNIT in SODIUM CHLORIDE 0.9% 99 ML IV PRN (19:00)
[2022-04-02] MEDS ORDERED: NOREPINEPHRINE 8MG/250ML PMX 250 ML IV PRN (19:00)
[2022-04-02] MEDS: PHENYLEPHRINE 100 MG in DEXT 5% WATER 240 ML IV PRN (19:06)
[2022-04-02] MEDS: NOREPINEPHRINE 32 MG in DEXT 5% WATER 218 ML IV PRN (19:15)
[2022-04-02 19:37] LABS: BG BASE EXCESS 3.9 mmol/L (-2.0-2.0); BG CARBOXYHEMOGLOBIN 1.1 % (0.5-1.5); BG DEOXYHEMOGLOBIN 0.9 % (0.0-5.0); BG FRACTION INSPIRED OXYGEN 100; BG HCO3 ACT 28.9 mmol/L (22.0-26.0); BG METHEMOGLOBIN 0.3 % (0.0-1.5); BG OXYGEN SATURATION 99.1 % (92.0-98.5); BG OXYHEMOGLOBIN 97.7 % (94.0-97.0); BG PCO2 45.8 mmHg (35.0-45.0); BG PEEP (cmH2O) 0 cmH2O; BG PH 7.418 (7.350-7.450); BG PO2 241.5 mmHg (75.0-100.0); BG SAMPLE SITE RIGHT RADIAL; BG TOTAL HEMOGLOBIN 9.3 g/dL (12.0-18.0); BG TOTAL RESPIRATORY RATE 14 b/min; BG VENT MODE VENT - AC
[2022-04-02 20:11] LABS: HEMATOCRIT. 33.8 % (36.0-48.0); HEMOGLOBIN. 10.5 g/dL (12.0-16.0); MEAN PLATELET VOLUME 11.3 fl (7.4-10.4); PLATELET 110 x1000/uL (130-400); RED BLOOD CELL COUNT 3.28 mill/uL (4.2-5.4)
[2022-04-02 20:21] LABS: PHOSPHORUS 6.6 mg/dL (2.5-4.9)
[2022-04-02 21:07] LABS: PLATELET ESTIMATE DECREASED
[2022-04-02 21:10] LABS: NUCLEATED RED BLOOD CELLS 1 /100 WBC; PLATELET ESTIMATE DECREASED
[2022-04-02] MEDS: RISPERIDONE 1MG TABLET PO SCH (21:14)
[2022-04-02] MEDS: QUETIAPINE FUMARATE 50MG TABLET PO SCH (21:14)
[2022-04-02] MEDS: MIRTAZAPINE 15MG TABLET PO SCH (21:14)
[2022-04-02] MEDS: HEPARIN 5000 UNITS/ML VIAL SUBCUT SCH (21:15)
[2022-04-02] MEDS: CEFTRIAXONE 1,000 MG in DEXTROSE 5% WATER 50 ML IV SCH (21:26)
[2022-04-02] MEDS: METRONIDAZOLE 500 MG PREMIX 100 ML IV SCH (21:27)
[2022-04-02] MEDS ORDERED: MIDAZOLAM HCL 100 MG in SODIUM CHLORIDE 0.9% 80 ML IV PRN (23:00)
[2022-04-03] VITALS (99 sets, daily range): BP systolic 62–113; BP diastolic 50–80
[2022-04-03] MEDS: PHENYLEPHRINE 100 MG in DEXT 5% WATER 240 ML IV PRN ×3 (01:19→15:56)
[2022-04-03 05:29] LABS: HEMATOCRIT. 31.9 % (36.0-48.0); HEMOGLOBIN. 10.2 g/dL (12.0-16.0); MEAN CORPUSCULAR HEMOGLOBIN 31.8 pg (28.0-32.0); MEAN CORPUSCULAR VOLUME 99.4 fL (81.0-99.0); PLATELET 119 x1000/uL (130-400); RED BLOOD CELL COUNT 3.21 mill/uL (4.2-5.4); RED CELL DISTRIBUTION WIDTH 18.1 % (11.6-14.6)
[2022-04-03 05:53] LABS: PHOSPHORUS 5.7 mg/dL (2.5-4.9)
[2022-04-03] MEDS: METRONIDAZOLE 500 MG PREMIX 100 ML IV SCH ×3 (06:10→22:05)
[2022-04-03] MEDS ORDERED: LIDOCAINE HCL 1% 30ML VIAL (10MG/ML) ONE (07:24)
[2022-04-03 08:32] LABS: BG BASE EXCESS 3.3 mmol/L (-2.0-2.0); BG CARBOXYHEMOGLOBIN 0.9 % (0.5-1.5); BG DEOXYHEMOGLOBIN 8.9 % (0.0-5.0); BG HCO3 ACT 27.8 mmol/L (22.0-26.0); BG METHEMOGLOBIN 0.2 % (0.0-1.5); BG PCO2 42.2 mmHg (35.0-45.0); BG PH 7.437 (7.350-7.450); BG PO2 65.8 mmHg (75.0-100.0); BG SAMPLE SITE RIGHT RADIAL; BG TOTAL HEMOGLOBIN 10.8 g/dL (12.0-18.0); BG VENT MODE VENT - AC
[2022-04-03] MEDS: DIVALPROEX SODIUM 250MG DR TABLET PO SCH ×2 (08:51→20:46)
[2022-04-03] MEDS: HEPARIN 5000 UNITS/ML VIAL SUBCUT SCH ×2 (08:52→20:46)
[2022-04-03] MEDS: BUPROPION HCL 150MG TABLET XL 24HR PO SCH (10:15)
[2022-04-03 11:14] LABS: NUCLEATED RED BLOOD CELLS 3 /100 WBC; PLATELET ESTIMATE SLIGHTLY DECREASED
[2022-04-03] MEDS ORDERED: IOHEXOL-350 100 ML BOTTLE ONE (11:50)
[2022-04-03] MEDS ORDERED: PANTOPRAZOLE SODIUM 40 MG/VIAL IV SCH (15:00)
[2022-04-03] MEDS: NOREPINEPHRINE 32 MG in DEXT 5% WATER 218 ML IV PRN (15:30)
[2022-04-03] MEDS ORDERED: NA PHOS,M-B/NA PHOS,DI-BA ENEMA 118ML PR NR (17:15)
[2022-04-03] MEDS ORDERED: POLYETHYLENE GLYCOL 3350 (17GM) 1 DOSE PACK PO NR (17:15)
[2022-04-03] MEDS: CEFTRIAXONE 1,000 MG in DEXTROSE 5% WATER 50 ML IV SCH (20:46)
[2022-04-03] MEDS: QUETIAPINE FUMARATE 50MG TABLET PO SCH (20:46)
[2022-04-03] MEDS ORDERED: PHENYLEPHRINE 100 MG in DEXT 5% WATER 240 ML IV PRN (23:15)
[2022-04-04] VITALS (28 sets, daily range): BP systolic 50–199; BP diastolic 31–181
[2022-04-04] MEDS: NOREPINEPHRINE 32 MG in DEXT 5% WATER 218 ML IV PRN (03:52)
[2022-04-04] MEDS ORDERED: LORAZEPAM 2MG/ML CPJ IV PRN (04:45)
[2022-04-04] MEDS ORDERED: LEVETIRACETAM 1000MG PREMIX 100 ML IV SCH (04:45)
[2022-04-04 05:02] LABS: CHLORIDE 96 mEq/L (98-107)
[2022-04-06 13:06] LABS: ALBUMIN 2.4 g/dL (2.9-4.4); ALPHA-1-GLOBULIN 0.3 g/dL (0.0-0.4); ALPHA-2-GLOBULIN 0.5 g/dL (0.4-1.0); BETA GLOBULIN 0.7 g/dL (0.7-1.3); GAMMA GLOBULINS 0.8 g/dL (0.4-1.8); GLOBULIN TOTAL 2.3 g/dL (2.2-3.9); M-SPIKE Not Observed g/dL (Not Observed); TOTAL PROTEIN SERUM 4.7 g/dL (6.0-8.5)
== END 2022-04-04 05:35 | DRG 314 ==
LOC: ER 14:37 → 7WST 17:53 → ENRESERV 20:56 → MICUNO 04-02 19:37
PROVIDERS: ADMIT Internal Medicine; ATTEND Internal Medicine
PROC: 5A1D70Z Performance of Urinary Filtration, Intermittent, Less than 6 Hours Per Day (ICD-10-PCS; 2022-03-22)
PROC: 5A1D70Z Performance of Urinary Filtration, Intermittent, Less than 6 Hours Per Day (ICD-10-PCS; 2022-03-24)
PROC: 5A1D70Z Performance of Urinary Filtration, Intermittent, Less than 6 Hours Per Day (ICD-10-PCS; 2022-03-26)
PROC: 5A1D70Z Performance of Urinary Filtration, Intermittent, Less than 6 Hours Per Day (ICD-10-PCS; 2022-03-28)
PROC: 5A1D70Z Performance of Urinary Filtration, Intermittent, Less than 6 Hours Per Day (ICD-10-PCS; 2022-03-30)
PROC: 5A1D70Z Performance of Urinary Filtration, Intermittent, Less than 6 Hours Per Day (ICD-10-PCS; 2022-04-01)
PROC: 0BH17EZ Insertion of Endotracheal Airway into Trachea, Via Natural or Artificial Opening (ICD-10-PCS; 2022-04-02)
PROC: 5A12012 Performance of Cardiac Output, Single, Manual (ICD-10-PCS; 2022-04-02)
PROC: 5A1945Z Respiratory Ventilation, 24-96 Consecutive Hours (ICD-10-PCS; 2022-04-02)
PROC: B54MZZA Ultrasonography of Right Upper Extremity Veins, Guidance (ICD-10-PCS; principal; 2022-04-03)
PROC: 05HY33Z Insertion of Infusion Device into Upper Vein, Percutaneous Approach (ICD-10-PCS; 2022-04-03)
PROC: 5A1D70Z Performance of Urinary Filtration, Intermittent, Less than 6 Hours Per Day (ICD-10-PCS; 2022-04-03)
DX: T82.838A Hemorrhage due to vascular prosthetic devices, implants and grafts, initial encounter (principal); G92.8 Other toxic encephalopathy; N18.6 End stage renal disease; I50.43 Acute on chronic combined systolic (congestive) and diastolic (congestive) heart failure; J96.21 Acute and chronic respiratory failure with hypoxia; I63.9 Cerebral infarction, unspecified; T82.41XA Breakdown (mechanical) of vascular dialysis catheter, initial encounter; E44.0 Moderate protein-calorie malnutrition; E87.1 Hypo-osmolality and hyponatremia; I13.2 Hypertensive heart and chronic kidney disease with heart failure and with stage 5 chronic kidney disease, or end stage renal disease; I42.2 Other hypertrophic cardiomyopathy; I46.9 Cardiac arrest, cause unspecified; D64.9 Anemia, unspecified; E11.22 Type 2 diabetes mellitus with diabetic chronic kidney disease; E11.65 Type 2 diabetes mellitus with hyperglycemia; E83.52 Hypercalcemia; E03.9 Hypothyroidism, unspecified; F25.0 Schizoaffective disorder, bipolar type; I27.21 Secondary pulmonary arterial hypertension; E66.9 Obesity, unspecified; E87.5 Hyperkalemia; Y84.1 Kidney dialysis as the cause of abnormal reaction of the patient, or of later complication, without mention of misadventure at the time of the procedure; Z99.2 Dependence on renal dialysis; Y92.89 Other specified places as the place of occurrence of the external cause; Z79.899 Other long term (current) drug therapy; Z82.49 Family history of ischemic heart disease and other diseases of the circulatory system; Z83.3 Family history of diabetes mellitus; Z85.3 Personal history of malignant neoplasm of breast; Z91.14 Patient's other noncompliance with medication regimen; Z79.4 Long term (current) use of insulin; Z68.29 Body mass index [BMI] 29.0-29.9, adult; D72.825 Bandemia; I35.0 Nonrheumatic aortic (valve) stenosis; R00.1 Bradycardia, unspecified
CPT/HCPCS: 31500; 36415; 36573; 36600; 70496; 70498; 70551; 71045; 76604; 80048; 80053; 82330; 82375; 82805; 82962; 83735; 83970; 84100; 84145; 84155; 84165; 84550; 85025; 86705; 86709; 86803; 86850; 86900; 87340; 92610; 92950; 93005; 93970; 93971; 94002; 94003; 97162; 99285; C1725; C1893; C9113; J0696; J1200; J1644; J1953; J2250; J2370; J2405; J2430; J3490; J7040; J7050; J7060; Q9967